=== PATIENT | male | born 1995 | race Two or more races ===

== ENCOUNTER 2024-04-24 05:50 | Emergency (ER) | payer OTHER ==
[~2024-04-24] VITALS: Ht 170.2 cm; Wt 72.7 kg
[2024-04-24 05:55] VITALS: BP 116/86; PULSE 93; RESP 16; TEMP 98.8; O2SAT 98
[2024-04-24] MEDS ORDERED: IBUP-1454 PO (08:01)
[2024-04-24] MEDS ORDERED: CYCL-837 PO (08:01)
[2024-04-24] MEDS: KETOROLAC TROMETH 30 MG/ML 1ML VIAL IM ONE (08:05)
== END 2024-04-24 08:13 | disposition home or self-care (01) ==
LOC: ER 05:50 → EDBD 05:50 → ER 08:13
DX: S13.4XXA Sprain of ligaments of cervical spine, initial encounter (principal); V89.2XXA Person injured in unspecified motor-vehicle accident, traffic, initial encounter; Y93.89 Activity, other specified; Y92.410 Unspecified street and highway as the place of occurrence of the external cause; Y99.8 Other external cause status
CPT/HCPCS: 70450; 72125; 96372; 99285; J1885